=== PATIENT | female | born 1960 | race Caucasian/White ===

== ENCOUNTER 2025-08-03 11:52 | Outpatient (CLI) | payer OTHER ==
[2025-08-03 12:45] LABS: #Basophils 0.1 thou/uL (0.0-0.2); #Eosinophils 0.2 thou/uL (0.0-0.7); #Lymphocytes 2.4 thou/uL (1.20-3.40); #Monocytes 0.5 thou/uL (0.11-0.59); #Neutrophils 3.3 thou/uL (1.40-6.50); %Basophils 1.8 % (0.0-1.0); %Eosinophils 2.6 % (0.0-10.0); %Lymphocytes 36.5 % (21.0-51.0); %Monocytes 7.8 % (0.0-10.0); %Neutrophils 51.3 % (42.0-75.0); Hematocrit 37.6 % (36.0-47.0); Hemoglobin 11.7 g/dL (12.0-16.0); Mean Corpuscular Hemoglobin 27.4 pg (27.0-31.0); Mean Corpuscular Volume 87.7 fl (78.0-98.0); Platelet Count 448 10x3/uL (130-400); Red Blood Cell (RBC) Count 4.29 mill/uL (4.20-5.40); White Blood Cell (WBC) Count 6.5 10x3/uL (4.8-10.8)
[2025-08-03 13:09] LABS: ALT (SGPT) 21 U/L (Less than 34); AST (SGOT) 30 U/L (11-34); Albumin 4.0 g/dL (3.1-4.5); Alkaline Phosphatase 72 U/L (40-110); Anion Gap 18 mmol/L (10-20); BUN (Urea Nitrogen) 15 mg/dL (9.8-20.1); Bilirubin, Total 0.3 mg/dL (0.3-1.2); Calc. Creatinine Clearance 0 mL/min (70-130); Calcium 9.2 mg/dL (7.8-10.44); Carbon Dioxide 25 mmol/L (23-31); Cardiac Risk 2.6 (Less than 4.5); Chloride 104 mmol/L (98-107); Cholesterol 170 mg/dl (< 200 Desired); Globulin 3.3 g/dL (2.4-3.5); Glucose 133 mg/dL (80-115); HDL Cholesterol 66 mg/dL (>60 Neg Risk); LDL Cholesterol, Calculated 91 mg/dL; Potassium 4.6 mmol/L (3.5-5.1); Sodium 142 mmol/L (136-145); Triglycerides 64 mg/dL (Less than 150)
[2025-08-03 13:19] LABS: Thyroid Stimulating Hormone 0.7213 uIU/mL (0.35-4.94)
[2025-08-03 16:57] LABS: Free T4 (Free Thyroxine) 1.11 ng/dL (0.70-1.48)
[2025-08-03 22:57] LABS: Vitamin D, 25 Hydroxy 67.2 ng/ml (> 30.0)
== END 2025-08-03 11:53 | disposition home or self-care (01) ==
LOC: MADLAB 11:52
PROVIDERS: ATTEND Family Medicine
DX: Z00.00 Encounter for general adult medical examination without abnormal findings (principal); E03.9 Hypothyroidism, unspecified; E11.40 Type 2 diabetes mellitus with diabetic neuropathy, unspecified; I10 Essential (primary) hypertension; E78.2 Mixed hyperlipidemia; E55.9 Vitamin D deficiency, unspecified
CPT/HCPCS: 36415; 80053; 80061; 82043; 82306; 83036; 84439; 84443; 84481; 85025